=== PATIENT | female | born 1960 | race African-American/Black ===

== ENCOUNTER 2020-09-16 15:05 | Outpatient (CLI) | payer MEDICARE | END 2020-09-16 15:06 | disposition home or self-care (01) | LOC: CSHULT 15:05 | PROVIDERS: ATTEND Family Medicine | DX: E04.9 Nontoxic goiter, unspecified (principal); E04.2 Nontoxic multinodular goiter; Z90.89 Acquired absence of other organs | CPT/HCPCS: 76536 ==

== ENCOUNTER 2023-06-14 13:22 | Outpatient (CLI) | payer MEDICARE | END 2023-06-14 13:23 | disposition home or self-care (01) | LOC: CSHMAMMO 13:22 | PROVIDERS: ATTEND Obstetrics & Gynecology | DX: N63.10 Unspecified lump in the right breast, unspecified quadrant (principal); N60.01 Solitary cyst of right breast | CPT/HCPCS: 76642; 77065; G0279 ==

== ENCOUNTER 2024-01-03 14:00 | Outpatient (CLI) | payer MEDICARE | END 2024-01-03 14:01 | disposition home or self-care (01) | LOC: CSHULT 14:00 | PROVIDERS: ATTEND Family Medicine | DX: E04.1 Nontoxic single thyroid nodule (principal); Z90.89 Acquired absence of other organs; E04.2 Nontoxic multinodular goiter | CPT/HCPCS: 76536 ==

== ENCOUNTER 2024-12-03 14:39 | Outpatient (CLI) | payer MEDICARE | END 2024-12-03 14:40 | disposition home or self-care (01) | LOC: CSHMAMMO 14:39 | PROVIDERS: ATTEND Family Medicine | DX: N63.11 Unspecified lump in the right breast, upper outer quadrant (principal); R92.8 Other abnormal and inconclusive findings on diagnostic imaging of breast; N63.13 Unspecified lump in the right breast, lower outer quadrant | CPT/HCPCS: 76642; 77066; G0279 ==